=== PATIENT | male | born 1965 | race Caucasian/White ===

== ENCOUNTER 2018-02-22 18:07 | Emergency (ER) | payer BC, OTHER ==
[2018-02-22] MEDS ORDERED: Acetaminophen 500 MG TAB ONE (18:17)
--- NOTE | 2018-02-22 20:17 | RAD ---
PORTABLE AP CHEST X-RAY: 02/22/2018 HISTORY: Cough. Fever. FINDINGS: There is mild blunting of the right lateral costophrenic angle, suggesting a small right pleural effu cristy. There is minimal linear atelectasis versus scarring in the right mid lung zone. Remote left-s ided rib fractures are present. The cardiac silhouette and pulmonary vasculature are within normal l imits. IMPRESSION: Small right pleural effusion. POS: BENOIT
== END 2018-02-22 20:00 | disposition home or self-care (01) ==
LOC: ERS 18:07
DX: J40 Bronchitis, not specified as acute or chronic (principal)
CPT/HCPCS: 71045

== ENCOUNTER 2018-02-23 18:31 | Inpatient (IN) | payer OTHER ==
[~2018-02-23 18:31] MED LIST: ISOVUE-370 76%-LOCM 1 ML ONE
[2018-02-23] MEDS ORDERED: Ketorolac Tromethamine 30 MG/ML VIAL ONE (18:43)
[2018-02-23 19:01] LABS: #Eosinphils 0.2 thou/uL (0.0-0.7); #Monocytes 0.5 thou/uL (0.11-0.59); %Basophils 0.4 % (0.0-1.0); %Eosinophils 1.5 % (0.0-10.0); %Lymphocytes 17.1 % (21.0-51.0); %Monocytes 4.1 % (0.0-10.0); %Neutrophils 76.9 % (42.0-75.0); Hemoglobin 13.1 g/dL (14.0-18.0); Mean Corpuscular HGB CONC 32.9 g/dL (32.0-36.0); Mean Corpuscular Hemoglobin 30.2 pg (27.0-31.0); Mean Corpuscular Volume 91.7 fL (78.0-98.0); Platelet Count 575 thou/uL (130-400); RBC Distribution Width 11.5 % (11.5-14.5); Red Blood Cell (RBC) Count 4.34 mill/uL (4.70-6.10); White Blood Cell (WBC) Count 11.7 thou/uL (4.8-10.8)
[2018-02-23 19:26] LABS: ALT (SGPT) 75 U/L (8-55); AST (SGOT) 49 U/L (5-34); Albumin 3.5 g/dL (3.5-5.0); Alkaline Phosphatase 188 U/L (40-150); Anion Gap 14 mmol/L (10-20); BUN (Urea Nitrogen) 13 mg/dL (8.9-20.6); Bilirubin, Total 0.7 mg/dL (0.2-1.2); Calc. Creatinine Clearance 0 mL/min (70-130); Calcium 9.2 mg/dL (7.8-10.44); Carbon Dioxide 19 mmol/L (22-29); Chloride 107 mmol/L (98-107); Estimated GFR-MDRD Greater than 90; Globulin 3.7 g/dL (2.4-3.5); Glucose 156 mg/dL (70-105); Potassium 3.7 mmol/L (3.5-5.1); Protein, Total 7.2 g/dL (6.0-8.3); Sodium 136 mmol/L (136-145)
[2018-02-23] MEDS ORDERED: cefTRIAXone\\ROCEPHIN 1 GM VIAL ONE (20:10)
[2018-02-23] MEDS ORDERED: cefTRIAXone\\ROCEPHIN 2 GM VIAL ONE (20:11)
[2018-02-23] MEDS ORDERED: Azithromycin 500 MG VIAL ONE (20:57)
[2018-02-23] MEDS ORDERED: Ondansetron PF 4 MG/2 ML Vial ONE (21:00)
[2018-02-23] MEDS ORDERED: Morphine 4 MG/ML VIAL ONE (21:01)
--- NOTE | 2018-02-23 21:09 | CT ---
CT ANGIOGRAM THORAX WITH IV CONTRAST AND 3D RECONSTRUCTIONS: 02/23/18 HISTORY: Chest pain. Patient complains of right sided chest pain with pain radiating to back. COMPARISON: None available. FINDINGS: No filling defects are seen in the pulmonary arteries to suggest pulmonary embolus. The thoracic aort a is normal in caliber without evidence of an aortic dissection. Mild atherosclerotic plaque and calc ifications are seen in the descending thoracic aorta. There is moderately large right pleural effusion and associated atelectasis. However, there is a hete rogeneous mass-like density seen in the right lower lobe measuring 3.3 cm x 2.6 cm. This could repres ent a mass, but necrotizing pneumonia could not be entirely excluded. The left lung is clear. A few peripheral blebs are seen at the right lung apex. There is a mildly prominent pretracheal lymph node measuring 9 mm in short axis dimension with a few mildly prominent lymph nodes in the subcarinal region as well as in the right hilar region. There is a right adrenal mass measuring 2.7 cm x 1.5 cm. There is an area of increased density which could be related to either minimal calcification or mild enhancement. However, further evaluation wit h CT abdomen with noncontrast imaging is recommended. Remainder of the visualized upper abdomen has a normal CT appearance. Osseous structures are intact. There is a small hemangioma seen in the T11 vertebral body. IMPRESSION: 1. Moderately large right pleural effusion with a heterogeneous mass-like structure seen within the right lower lobe measuring 3.3 cm in maximal dimensions. This may represent focal area of necroti zing pneumonia, but a neoplastic process/mass is a possibility. 2. Nonspecific mediastinal lymphadenopathy which could be reactive in origin or secondary to met astatic disease. 3. Right adrenal nodule. Further evaluation with nonenhanced CT scan abdomen following the adren al mass protocol is recommended. 4. No CT evidence of a pulmonary embolus. POS: HEATHER
[2018-02-23 23:53] LABS: Lactic Acid 1.8 mmol/L (0.5-2.2)
[2018-02-24] MEDS ORDERED: Zolpidem Tartrate 5 MG TAB PO PRN (00:04)
[2018-02-24] MEDS ORDERED: Albuterol Sulfate 2.5 mg/3 ml Neb NEB PRN (00:04)
[2018-02-24] MEDS ORDERED: Calcium Carbonate 500 MG ChewTAB PO PRN (00:04)
[2018-02-24] MEDS ORDERED: Ondansetron PF 4 MG/2 ML Vial IVP PRN (00:04)
[2018-02-24] MEDS ORDERED: Acetaminophen 325 MG TAB PO PRN (00:04)
[2018-02-24] MEDS ORDERED: Senokot S 8.6-50 MG TAB PO PRN (00:04)
[2018-02-24] MEDS ORDERED: Bisacodyl 10 MG SUPP PR PRN (00:04)
[2018-02-24] MEDS ORDERED: Ondansetron ODT 4 MG TAB PO PRN (00:04)
[2018-02-24] MEDS ORDERED: Loperamide HCl 2 MG CAP PO PRN (00:04)
[2018-02-24 00:22] VITALS: BMI 24.5
[2018-02-24] MEDS: Ketorolac Tromethamine 30 MG/ML VIAL IVP PRN (01:24)
[2018-02-24] MEDS: Sodium Chloride 0.9% 1,000 ML IV SCH ×2 (01:31→11:00)
--- NOTE | 2018-02-24 02:38 | HP ---
DATE OF SERVICE: 02/23/2018 PRIMARY CARE PHYSICIAN: Nakul. REASON FOR ADMISSION: Necrotizing pneumonia/parapneumonic effusion/lung mass. HISTORY OF PRESENT ILLNESS: A 52-year-old male who has underlying history of tobacco abuse disorder. He smokes about 1 pack per day for 40 years. He was evaluated yesterday in the emergency room with a complaint of cough. The patient reports that he is sick for the last 2 week, but for the last 4 days, he was having on and off fever. He reported that maximum temperature at home was 102. He was having headache, body ache, pleuritic chest pain on the right side. He was having cough. He was having increasing shortness of breath. Yesterday, the patient was given Tylenol in the emergency room and he was discharged home on azithromycin. During that emergency room visit, the patient was febrile with a temperature of 102.2. The patient returned back to the emergency room today again because his pain has not improved and he is feeling more sick. In the emergency room today, his fever is 99.8. He is tachycardic. CT angiography was done, which showed moderately large right pleural effusion with heterogenous mass-like structure within the right lower lobe. There was nonspecific mediastinal lymphadenopathy. The patient denies any hemoptysis. He has mainly pleuritic chest discomfort on the right side. He is feeling weak. He does not have any recall of having upper respiratory or flu-like illness. He denies any UTI symptoms. He denies any constipation, diarrhea, melena, or hematochezia. He stopped smoking for the last 4 days. He denies any weight loss. He denies any similar problem in the past. PAST MEDICAL HISTORY: Tobacco abuse disorder. PAST SURGICAL HISTORY: Appendicectomy. PAST PSYCHIATRIC HISTORY: Reviewed and negative. SOCIAL HISTORY: The patient drinks alcohol socially. He has history of smoking about 1 pack per day for the last 40 years. He only stopped smoking 4 days since he got sick. FAMILY HISTORY: No strong family history of premature coronary artery disease, stroke, or cancer. ALLERGIES: No known drug allergy. CURRENT HOME MEDICATIONS: The patient was yesterday prescribed azithromycin. REVIEW OF SYSTEMS: The following complete review of systems was negative, unless otherwise mentioned in the HPI or below: Constitutional: Weight loss or gain, ability to conduct usual activities. Skin: Rash, itching. Eyes: Double vision, pain. ENT/Mouth: Nose bleeding, neck stiffness, pain, tenderness. Cardiovascular: Palpitations, dyspnea on exertion, orthopnea. Respiratory: Shortness of breath, wheezing, cough, hemoptysis, fever or night sweats. Gastrointestinal: Poor appetite, abdominal pain, heartburn, nausea, vomiting, constipation, or diarrhea. Genitourinary: Urgency, frequency, dysuria, nocturia. Musculoskeletal: Pain, swelling. Neurologic/Psychiatric: Anxiety, depression. Allergy/Immunologic: Skin rash, bleeding tendency. Please see my HPI for pertinent positive and negative. All other review of systems reviewed and negative except as mentioned in the HPI. PHYSICAL EXAMINATION: VITAL SIGNS: Blood pressure currently 131/98, pulse 112, respiratory rate 22, temperature 99.8, saturation 95% on room air, weight 71.2 kilograms. GENERAL: The patient is currently in discomfort due to pleuritic chest discomfort, tachycardic. HEAD: Normocephalic, atraumatic. EYES: Pupils round, reactive to light. Extraocular muscle intact. ENT: Oropharynx within normal limit. Moist mucous membrane. No oral lesion. No pharyngeal erythema. No exudate. NECK: Supple. No JVD, no thyromegaly, no carotid bruit, no lymph nodes. LUNGS: Air entry reduced on the right side. Basal rales noted on the right side. Bronchial breath sound noted on the right side. No wheezing, no rhonchi. CARDIAC: S1, S2 regular. Tachycardia. No murmur, no gallop, no rub. ABDOMEN: Soft. Bowel sounds present. Nontender, nondistended. No organomegaly, no mass, no suprapubic tenderness. BACK: Unremarkable. No CVA tenderness. EXTREMITIES: Upper extremities: Passive movement of all joints are normal. Lower extremities: No edema. Good distal pulsation. SKIN: No skin rash. HEMATOLOGIC: No lymphadenopathy. PSYCHIATRIC: Normal affect. SIGNIFICANT LABORATORY DATA: CBC today WBC 11.7, hemoglobin 13.1, platelet 575 with a left shift. BMP: Sodium 136, potassium 3.7, chloride 107, carbon dioxide 19, BUN 13, creatinine 0.88, glucose 156, calcium 9.2. LFT: AST 49, ALT 75, alkaline phosphatase 188, albumin 3.5. Lactic acid is 1.8. CT angiography showed moderately large right pleural effusion with heterogenous mass in the right lower lobe, 3.3 cm in dimension; nonspecific mediastinal lymphadenopathy; right adrenal nodule; no evidence of pulmonary embolism. Chest x-ray done yesterday, which showed small right pleural effusion, remote left-sided rib fracture. ASSESSMENT AND PLAN: 1. Right-sided pneumonia. The patient does have radiological finding of necrotizing pneumonia. Another differential is parapneumonic effusion. The patient's clinical history is consistent with community-acquired pneumonia, but has not improved. This patient has almost 2-week history of lower respiratory symptoms. At this point, most likely the patient has pneumonia, but other possibility needs to be excluded given his smoking history. The patient will be admitted to medical floor. He will be treated with Solu-Medrol 40 mg IV q.6 hourly, broad-spectrum antibiotic therapy with cefepime 2 gram q.12 hourly, Levaquin 750 mg IV daily, and vancomycin. Pulmonary group will be consulted. This patient will benefit from thoracentesis to rule out parapneumonic effusion versus malignancy. This patient does have mediastinal lymph node, probably reactive from infection. 2. Abnormal liver function test, most likely related with underlying infection with sepsis. We will also check hepatitis profile and we will do a right upper quadrant ultrasound to rule out any other pathology. 3. Tobacco abuse disorder. Smoking cessation counseling given. Healthy lifestyle measures discussed with the patient. 4. Deep venous thrombosis prophylaxis. Lovenox 40 mg subcu daily. 5. Gastrointestinal prophylaxis, Pepcid 20 mg p.o. b.i.d. 6. Pleurisy. The patient will be given Toradol and Solu-Medrol for pleurisy. Disposition plan, based on clinical course. We are expecting patient's stay in hospital more than 2 midnights. Plan of care discussed with the patient in detail. CHAPOD
[2018-02-24] MEDS ORDERED: Vancomycin HCl 1.5 GM in Sodium Chloride 0.9% 250 ML 300 ML IVPB SCH (04:00)
[2018-02-24 05:52] LABS: Band 4 % (5-11); Eosinophils 1 % (0-10); Hemoglobin 12.5 g/dL (14.0-18.0); Hypochromia SLIGHT = 6-15 cells (100X) (0-5/hpf); Lymphocytes 6 % (21-51); MDiff Complete? YES; Mean Corpuscular HGB CONC 32.4 g/dL (32.0-36.0); Mean Corpuscular Hemoglobin 30.3 pg (27.0-31.0); Mean Corpuscular Volume 93.6 fL (78.0-98.0); Mean Platelet Volume 7.2 fL (7.4-10.4); Monocytes 3 % (0-10); Neutrophil 86 % (42-75); PLT Morphology Comment Appears Increased; Platelet Count 554 thou/uL (130-400); RBC Distribution Width 11.6 % (11.5-14.5); Red Blood Cell (RBC) Count 4.13 mill/uL (4.70-6.10)
[2018-02-24 05:55] LABS: ALT (SGPT) 121 U/L (8-55); AST (SGOT) 78 U/L (5-34); Albumin 3.3 g/dL (3.5-5.0); Alkaline Phosphatase 194 U/L (40-150); Anion Gap 13 mmol/L (10-20); BUN (Urea Nitrogen) 13 mg/dL (8.9-20.6); Bilirubin, Total 1.2 mg/dL (0.2-1.2); Calc. Creatinine Clearance 111 mL/min (70-130); Calcium 8.9 mg/dL (7.8-10.44); Carbon Dioxide 21 mmol/L (22-29); Chloride 106 mmol/L (98-107); Estimated GFR-MDRD Greater than 90; Globulin 3.7 g/dL (2.4-3.5); Glucose 129 mg/dL (70-105); Potassium 4.3 mmol/L (3.5-5.1); Sodium 136 mmol/L (136-145)
[2018-02-24 06:16] LABS: HBCM Index 0.07 S/CO (0-0.79); Hep A IgM AB Non-Reactive (NonReactive); Hep A IgM S/CO 0.07 S/CO (0-0.79); Hep B Surf Ag Non-Reactive S/CO (NonReactive); Hepatitis B Core IgM Abs Non-Reactive (NonReactive)
[2018-02-24 07:48] LABS: Hep C IgG Ab Reflex HepC Qnt (NonReactive)
[2018-02-24 07:49] LABS: Hep C Index 1.68 S/CO (0-0.79)
--- NOTE | 2018-02-24 08:20 | ULT ---
RIGHT UPPER QUADRANT ULTRASOUND: INDICATION: History of abnormal LFTs, pneumonia, right pleural effusion, and sepsis. FINDINGS: No focal hepatic lesion is evident. The gallbladder demonstrates multiple small polyps, the largest measuring 4 mm. No sonographic David y's sign is reported. The common bile duct measures 3.7 mm. Visualized pancreas unremarkable. The right kidney measures 14.3 x 5.9 x 4.3 cm. There is slight prominence of the right renal pelvis with out karl evidence of caliectasis suspicious for an extrarenal pelvis. There is a complex right-side d pleural effusion better detailed on the CTA of the thorax dated 02/23/2018. IMPRESSION: 1. No focal hepatic lesion identified. 2. Multiple small polyps within the gallbladder, the largest measuring up to 4 mm. Followup examina tion in 6 months is recommended to document stability. There is no sonographic evidence of acute cho lecystitis. 3. Right extrarenal pelvis of the kidney. 4. Complex right side pleural effusion. POS: BH
[2018-02-24] MEDS ORDERED: Enoxaparin Sodium 40 MG/0.4 ML SYRINGE SC SCH (09:00)
[2018-02-24] MEDS ORDERED: Cefepime 2 GM in Sodium Chloride 0.9% 100 ML IVPB SCH (09:00)
[2018-02-24] MEDS ORDERED: Lidocaine 1% (PF) 30 ML VIAL ONE (09:03)
[2018-02-24] MEDS: Famotidine 20 MG TAB PO SCH ×2 (10:17→20:20)
[2018-02-24] MEDS: Clindamycin 150 MG CAP PO SCH ×3 (10:17→20:20)
[2018-02-24] MEDS: Saccharomyces boulardii 250 MG CAP PO SCH (10:17)
[2018-02-24] MEDS: guaiFENesin ER 600 MG TAB PO SCH ×2 (10:17→20:20)
[2018-02-24] MEDS: HYDROcodone/Acetaminophen 5/325 mg Tablet PO PRN (14:56)
--- NOTE | 2018-02-24 15:19 | CON ---
DATE OF CONSULTATION: 02/24/2018 SERVICE: Pulmonary Medicine. REASON FOR CONSULTATION: Pleural effusion. HISTORY OF PRESENT ILLNESS: The patient is a 52-year-old white male with past medical history significant for a 2-week history of not feeling very good followed by a 4-day history of high fevers. Ultimately, he presented to the emergency department. He was diagnosed with pneumonia and given azithromycin. He was subsequently discharged home. That being said over the next 24 hours, he felt much worse. He presented back to the emergency department and was subsequently admitted. They did a CT scan, there was a loculated effusion identified. He denies any current fevers, chills, nausea, vomiting, or shortness of breath. He is feeling a little bit better overnight since antibiotics were initiated. Otherwise, there has been no interval change to his condition. He has been coughing up yellow and green phlegm. He had no recent night sweats. This does not go back more than 2 weeks however. He has not had any dysuria; hot, red, swollen joints; rashes; or diarrhea. He does endorse malaise. PAST MEDICAL HISTORY: 1. Alcohol abuse. 2. Hepatitis C, new diagnosis. PAST SURGICAL HISTORY: Appendectomy. SOCIAL HISTORY: He is a social drinker. He has a [id number] history of smoking, but quit roughly 4 days ago when he got severely ill. He denies any illicit drugs. He denies any exposure to chemicals, dust, asbestos, or tuberculosis. FAMILY HISTORY: Noncontributory. ALLERGIES: No known drug allergies. MEDICATIONS: List of inpatient medications were reviewed. We have added anaerobic coverage to his antibiotics. REVIEW OF SYSTEMS: General, head, ears, eyes, nose, throat, cardiovascular, respiratory, GI, , musculoskeletal, neurologic, and skin is negative except as mentioned in the HPI. PHYSICAL EXAMINATION: VITAL SIGNS: Afebrile, pulse 80, blood pressure 116/78, respirations 17, saturation 93% on room air. GENERAL: The patient is awake, alert, no apparent distress. LUNGS: Decent air entry. There is no prolonged expiratory phase or wheezing present. There is decreased air entry at the right base. No rhonchi are appreciated. HEART: Normal rate, regular. ABDOMEN: Soft, nontender, nondistended. Bowel sounds are positive. MUSCULOSKELETAL: No cyanosis or clubbing. There is no pitting in the bilateral lower extremities. NEUROLOGIC: Grossly nonfocal. LABORATORY DATA: WBC 20.0 and uptrending, hemoglobin 12.5, platelets 554,000. Band count is dropping to 4% with a high neutrophil count of 86%. Basic metabolic profile is unremarkable. AST, ALT, alkaline phosphatase are all climbing. His lactate is negative x2. Hepatitis C antibodies are abnormal. Hepatitis B antigen, IgM are negative. IMAGING: Ultrasound of the abdomen demonstrates no acute liver abnormalities. Multiple small polyps are present in the gallbladder. Complex right-sided pleural effusion is identified. CTA of the chest demonstrates an infiltrate in the right base. There is a pleural effusion. Most of that looks free flowing. That being said, the apical regions, it does take on a loculated appearance. Nonspecific mediastinal lymph nodes are abnormal. There is an infiltrate versus abscess in the right base. Tumor growth cannot be excluded entirely. ASSESSMENT AND PLAN: 1. Community-acquired pneumonia. 2. Pleural effusion. 3. Chronic hepatitis C, new diagnosis. The patient does not require healthcare-associated coverage. We are going to discontinue his vancomycin and cefepime. I am going to add anaerobic coverage with clindamycin. Levaquin should be more than adequate to cover for the community-acquired organisms. We will proceed with a thoracentesis. Steroids will be discontinued in totality. If it appears that this is an infected space , surgical consultation will be placed. 70 minutes have been devoted to this patient in various activities. I personally reviewed all imaging studies and laboratory data noted within this document. For fifty percent of this time, I was interacting with the patient at the bedside or coordinating care with the care team. For the remainder of the time I was immediately available to the patient in the hospital unit. DAVID
[2018-02-24 15:51] LABS: Fluid, pH - Pleural Fld 7.04
[2018-02-24] MEDS ORDERED: Vancomycin HCl 1 GM in Premix Bag 1 BAG IVPB SCH (16:00)
[2018-02-24 16:06] LABS: Pleural Fluid, Protein 4.6 g/dL
--- NOTE | 2018-02-24 16:20 | PDOC.PN ---
- Subjective Encounter Start Date: 02/24/18 Encounter Start Time: 16:15 Subjective: f/u for R community acquired pneumonia with parapneumonic effusion -: s/p thoracentesis on current Clindamycin and Levaquin. - Objective Resuscitation Status: Resuscitation Status FULL:Full Resuscitation MAR Reviewed: Yes Vital Signs & Weight: Vital Signs (12 hours) Temp Pulse Resp BP Pulse Ox 02/24/18 08:00 98.2 F 80 17 116/78 93 L Weight Weight 156 lb 8.451 oz Result Diagrams: 02/24/18 04:15 02/24/18 04:15 Additional Labs: Microbiology 02/24/18 06:35 Sputum Respiratory Culture - Preliminary 02/23/18 20:32 Venous blood - Left Hand Blood Culture - Preliminary Specimen has been received and culture in progress. No Growth to date. 02/23/18 18:40 Venous blood - Right Arm Blood Culture - Preliminary Specimen has been received and culture in progress. No Growth to date. Laboratory Tests 02/23/18 02/23/18 02/24/18 18:40 18:40 04:15 WBC 11.7 H Hgb 13.1 L Neutrophils % 76.9 H Neutrophils % (Manual) AST 49 H 78 H ALT 75 H 121 H Alkaline Phosphatase 188 H 194 H Hepatitis A IgM Ab Hep Bs Antigen Hep B Core IgM Ab Hepatitis C Antibody 02/24/18 02/24/18 04:15 04:15 WBC Hgb Neutrophils % Neutrophils % (Manual) 86 H AST ALT Alkaline Phosphatase Hepatitis A IgM Ab Non-Reactive Hep Bs Antigen Non-Reactive Hep B Core IgM Ab Non-Reactive Hepatitis C Antibody Reflex HepC Qnt H Radiology Reviewed by me: Yes (CTA chest - R pleural effusion, central mass 3cm , ?necrotic pna) Phys Exam - Physical Examination Constitutional: NAD HEENT: PERRLA, sclera anicteric, oral pharynx no lesions Neck: no nodes, no JVD, supple, full ROM diminished in R lung base Respiratory: no rales, no rhonchi S1, S2 Cardiovascular: RRR, no significant murmur, no rub, gallop Gastrointestinal: soft, non-tender, no distention, positive bowel sounds Musculoskeletal: no edema, pulses present Neurological: normal sensation, moves all 4 limbs Psychiatric: normal affect, A&O x 3 Skin: no rash, normal turgor, cap refill <2 seconds Dx/Plan (1) Bacterial pneumonia Code(s): J15.9 - UNSPECIFIED BACTERIAL PNEUMONIA Status: Acute Comment: suspected gram + cocci, continue Levaquin and Clindamycin, pulmonary supportive mgmt (2) Parapneumonic effusion Code(s): J18.9 - PNEUMONIA, UNSPECIFIED ORGANISM; J91.8 - PLEURAL EFFUSION IN OTHER CONDITIONS CLASSIFIED ELSEWHERE Status: Acute Comment: s/p thoracentesis 02/24/18, await final pleural fluid cx, continue current abx regimen (3) Hepatitis C Code(s): B19.20 - UNSPECIFIED VIRAL HEPATITIS C WITHOUT HEPATIC COMA Status: Acute Qualifiers: Viral hepatitis chronicity: unspecified Comment: Recommend outpt mgmt and follow up (4) Transaminitis Code(s): R74.0 - NONSPEC ELEV OF LEVELS OF TRANSAMNS & LACTIC ACID DEHYDRGNSE Status: Chronic Comment: Likely due to Hep C +, outpt follow for mgmt - Plan continue antibiotics, respiratory therapy, out of bed/ambulate, DVT proph w/SCDs Stable overall -: Continue Levaquin and Clindamycin -: Continue Prednisone -: OOB/ambulate -: AM lab: CBC, Legionella and Strep Urine antigen pending * .
[2018-02-24 16:22] LABS: Legionella Urinary Ag Negative (Negative); Strep pneumo Urine Ag NEGATIVE (NEGATIVE)
[2018-02-24 17:08] LABS: BF Color Yellow; Body Fluid Source THORACENTESIS FLD; Clarity Cloudy/Turbid (Clear)
[2018-02-24 17:09] LABS: RBC Background Count 0.001; RBC Count-Automated 136000 /cumm; Tube # EDTA; WBC/NonHematic-Auto 92900 /cumm
--- NOTE | 2018-02-24 17:33 | OP ---
DATE OF SERVICE: 02/24/2018 SERVICE: Pulmonary Medicine. PROCEDURE: Right-sided pleural drainage with catheter insertion under ultrasound guidance. CONSENT: The risks and benefits of the procedure were explained to the patient. All questions were answered and alternative options explained. STAFF PHYSICIAN: Zia Ibrahim M.D. MEDICATIONS USED: Lidocaine 1% without epinephrine, total quantity 10 mL. PREOPERATIVE DIAGNOSES: 1. Community-acquired pneumonia. 2. Pleural effusion. POSTPROCEDURE DIAGNOSES: 1. Community-acquired pneumonia. 2. Pleural effusion. DESCRIPTION OF PROCEDURE: A timeout was performed by the procedure team and patient. The patient wa s positively identified using name and date of . The procedure site was marked. Vital sign mon itoring was accomplished by noninvasive hemodynamic monitoring, pulse oximetry. In the seated positi on, the right posterior hemithorax was examined using an ultrasound probe. The diaphragm and pleural fluid was easily identified. The skin was prepped and draped in sterile fashion and anesthetized wi th 1% lidocaine without epinephrine. A finder needle was inserted in the pleural space with return o f cloudy yellow fluid. A pleural drainage catheter was then inserted in the same location. A total quantity of 400 mL of the same fluid was withdrawn by syringe pump technique. A sample was sent for analysis. Evacuation of fluid was terminated because the fluid stopped coming. At the end of the pr ocedure, estimated pleural pressure, measured by manometry, was -20 cm of pleural fluid. Intact cath eter was withdrawn and exhalation. A sterile dressing was applied. The patient has stable vital thr oughout the entire procedure. ESTIMATED BLOOD LOSS: None. COMPLICATIONS: None.
[2018-02-24 19:24] LABS: BF Segmented Neutrophils 90 %; Cell Count Non Hematic 4 %; Lymphocytes 6 %
[2018-02-25] MEDS: Clindamycin 150 MG CAP PO SCH ×4 (03:08→21:20)
[2018-02-25 05:54] LABS: Band 22 % (5-11); Hemoglobin 11.3 g/dL (14.0-18.0); Lymphocytes 11 % (21-51); MDiff Complete? YES; Mean Corpuscular HGB CONC 32.6 g/dL (32.0-36.0); Mean Corpuscular Hemoglobin 30.5 pg (27.0-31.0); Mean Corpuscular Volume 93.6 fL (78.0-98.0); Mean Platelet Volume 7.3 fL (7.4-10.4); Monocytes 3 % (0-10); Neutrophil 64 % (42-75); Platelet Count 543 thou/uL (130-400); RBC Distribution Width 11.5 % (11.5-14.5); RBC Morphology Normal; Red Blood Cell (RBC) Count 3.69 mill/uL (4.70-6.10); White Blood Cell (WBC) Count 27.9 thou/uL (4.8-10.8)
[2018-02-25] MEDS: predniSONE 20 MG TAB PO SCH (08:35)
[2018-02-25] MEDS: Saccharomyces boulardii 250 MG CAP PO SCH (08:35)
[2018-02-25] MEDS: Famotidine 20 MG TAB PO SCH ×2 (08:35→21:20)
[2018-02-25] MEDS: guaiFENesin ER 600 MG TAB PO SCH ×2 (08:35→21:21)
[2018-02-25] MEDS: HYDROcodone/Acetaminophen 5/325 mg Tablet PO PRN ×2 (08:35→21:22)
--- NOTE | 2018-02-25 09:34 | PDOC.PN ---
- Subjective Encounter Start Date: 02/25/18 Encounter Start Time: 09:25 Subjective: f/u for R-sided PNA with effusion on current Clindamycin/Levaquin. -: s/p thoracentesis without dominant organism identified. -: Mild R back discomfort with movement. - Objective Resuscitation Status: Resuscitation Status FULL:Full Resuscitation MAR Reviewed: Yes Vital Signs & Weight: Vital Signs (12 hours) Temp Pulse Resp BP Pulse Ox 02/25/18 07:09 98.2 F 91 20 135/89 93 L 02/25/18 04:00 98.6 F 86 16 108/78 94 L Weight Weight 156 lb 8.451 oz I&O: 02/24/18 02/25/18 02/26/18 06:59 06:59 06:59 Intake Total 1800 Balance 1800 Result Diagrams: 02/25/18 04:49 02/24/18 04:15 Additional Labs: Microbiology 02/24/18 06:35 Nasopharyngeal swab Respiratory Virus Panel (PCR) - Final 02/24/18 15:11 Pleural fluid Body Fluid Culture - Preliminary 02/24/18 06:35 Sputum Respiratory Culture - Preliminary 02/23/18 20:32 Venous blood - Left Hand Blood Culture - Preliminary Specimen has been received and culture in progress. No Growth to date. 02/23/18 18:40 Venous blood - Right Arm Blood Culture - Preliminary Specimen has been received and culture in progress. No Growth to date. Laboratory Tests 02/23/18 02/23/18 02/24/18 18:40 18:40 04:15 WBC 11.7 H Hgb 13.1 L Plt Count Neutrophils % 76.9 H Neutrophils % (Manual) Band Neuts % (Manual) AST 49 H 78 H ALT 75 H 121 H Alkaline Phosphatase 188 H 194 H Hepatitis A IgM Ab Hep Bs Antigen Hep B Core IgM Ab Hepatitis C Antibody Ur L.pneumophila Ag Ur Strep pneumoniae Ag 02/24/18 02/24/18 02/24/18 04:15 04:15 15:08 WBC 20.0 H Hgb Plt Count 554 H Neutrophils % Neutrophils % (Manual) 86 H Band Neuts % (Manual) 4 L AST ALT Alkaline Phosphatase Hepatitis A IgM Ab Non-Reactive Hep Bs Antigen Non-Reactive Hep B Core IgM Ab Non-Reactive Hepatitis C Antibody Reflex HepC Qnt H Ur L.pneumophila Ag Negative Ur Strep pneumoniae Ag 02/24/18 02/25/18 15:08 04:49 WBC Hgb Plt Count Neutrophils % Neutrophils % (Manual) 64 Band Neuts % (Manual) 22 H AST ALT Alkaline Phosphatase Hepatitis A IgM Ab Hep Bs Antigen Hep B Core IgM Ab Hepatitis C Antibody Ur L.pneumophila Ag Ur Strep pneumoniae Ag NEGATIVE Phys Exam - Physical Examination Constitutional: NAD HEENT: PERRLA, sclera anicteric, oral pharynx no lesions Neck: no nodes, no JVD, supple, full ROM diminished in R lung field Respiratory: no wheezing S1, S2 Cardiovascular: RRR, no significant murmur, no rub, gallop Gastrointestinal: soft, non-tender, no distention, positive bowel sounds Musculoskeletal: no edema, pulses present Neurological: normal sensation, moves all 4 limbs Psychiatric: normal affect, A&O x 3 Skin: no rash, normal turgor, cap refill <2 seconds Dx/Plan (1) Bacterial pneumonia Code(s): J15.9 - UNSPECIFIED BACTERIAL PNEUMONIA Status: Acute Comment: suspected gram + cocci, continue Levaquin and Clindamycin, likely empyema forming, surgical consult for likely decortication (2) Parapneumonic effusion Code(s): J18.9 - PNEUMONIA, UNSPECIFIED ORGANISM; J91.8 - PLEURAL EFFUSION IN OTHER CONDITIONS CLASSIFIED ELSEWHERE Status: Acute Comment: s/p thoracentesis 02/24/18, await final pleural fluid cx, continue current abx regimen, see above (3) Hepatitis C Code(s): B19.20 - UNSPECIFIED VIRAL HEPATITIS C WITHOUT HEPATIC COMA Status: Acute Qualifiers: Viral hepatitis chronicity: unspecified Comment: Recommend outpt mgmt and follow up (4) Transaminitis Code(s): R74.0 - NONSPEC ELEV OF LEVELS OF TRANSAMNS & LACTIC ACID DEHYDRGNSE Status: Chronic Comment: Likely due to Hep C +, outpt follow for mgmt - Plan continue antibiotics, social media project manager, respiratory therapy, out of bed/ambulate , DVT proph w/SCDs Stable overall -: Continue Levaquin/Clindamycin -: Surgical consult for decortication -: Continue Prednisone -: Florastor daily * AM lab: CBC
--- NOTE | 2018-02-25 14:41 | PQF ---
DATE: 02-25-18 ATTN: DR. JAMES GASPAR Please exercise your independent, professional judgment in responding to the clarification form. Clinical indicators are provided on the bottom of this form for your review Please check appropriate box(s) to clarify if the following diagnosis has been ruled in or ruled out: SEPSIS [ ] Ruled in diagnosis [ ] Continue to treat [ ] Resolved [ x ] Ruled out diagnosis [ ] Other diagnosis [ ] Unable to determine In addition, please specify: Present on Admission (POA): [ ] Yes [ x ] No [ ] Unable to determine For continuity of documentation, please document condition throughout progress notes and discharge summary. Thank You. CLINICAL INDICATORS - SIGNS / SYMPTOMS / LABS ER DX: PNEUMONIA, R PLEURAL EFFUSION, SEPSIS H&P: R SIDED PNEUMONIA, ABN LFT, MOST LIKELY RELATED WITH UNDERLYING INFECTION WITH SEPSIS. WBC: 02-23-18: 11.7 02-24-18: 20 02-25-18: 27.9 BANDS: 02-24-18: 4 02-25-18: 22 ER: TEMP: 99.8, PULSE: 112, 107, REPORTS HE HAS FEVER OF 102, MEASURED AT HOME, RR: 21, 22 RISK FACTORS: H&P: HX TOBACCO ABUSE, FEVER, COUGH, MOELLER, BODY ACHES, PLEURISY, NEW DX OF HEP C H&P: R SIDED PNA, PLEURAL EFFUSION R SIDED TREATMENTS: ER: AZITHROMAX IV, CEFTRIAXONE IV, IVF NS (This form is maintained as a part of the permanent medical record) 2014 [employer]. All Rights Reserved [email or web address] Office: [phone] [facility] CENTERBushra
--- NOTE | 2018-02-25 17:15 | PRG ---
DATE OF SERVICE: 02/25/2018 SERVICE: Pulmonary Medicine. INTERVAL HISTORY: The patient is doing fine from a respiratory standpoint. He is breathing comfortably. Otherwise, there has been no interval change to his condition. He continues to have right-sided chest discomfort. PHYSICAL EXAMINATION: VITAL SIGNS: Afebrile, pulse 91, blood pressure 116/68, respirations 17, saturation 94% on room air. GENERAL: The patient is awake, alert, no apparent distress. LUNGS: Decent air entry on the left. Decreased air entry on the right. HEART: Normal rate, regular. ABDOMEN: Soft, nontender, nondistended. Bowel sounds are positive. MUSCULOSKELETAL: No cyanosis or clubbing. There is no pitting in the bilateral lower extremities. NEUROLOGIC: Grossly nonfocal. LABORATORY DATA: WBC 28, hemoglobin 11.3, platelets 543,000. Basic metabolic profile is essentially unremarkable. AST and ALT were previously up trending. Body fluid analysis is consistent with a neutrophilic exudate with low glucose and pH consistent with a complicated parapneumonic pleural effusion at best. Cultures remain negative to date. Respiratory virus panel is negative. ASSESSMENT: 1. Community-acquired pneumonia. 2. Complicated parapneumonic pleural effusion. 3. Chronic hepatitis C, new diagnosis. DISCUSSION AND PLAN: The patient is doing fine from a respiratory standpoint at this point. He actually says, he feels better today. That being said, at best we are dealing with a complicated space. As such, I will be treating this as though were an empyema. Cardiothoracic consultation will be placed. The patient will likely move forward with a decortication of the next 24-48 hours. He will need to visit with GI in the outpatient setting to discuss treatment modalities for his hepatitis. DAVID
--- NOTE | 2018-02-25 22:07 | CON ---
DATE OF CONSULTATION: 02/25/2018 HISTORY OF PRESENT ILLNESSs: This is a 52-year-old gentleman, smoker for most of his life, who felt like he had the flu with some fever, malaise, some mild anorexia, mild cough. He was seen in the emergency room; however, returned and a CT scan showed a right pleural effusion. This was aspirated today by Dr. Ibrahim and appeared to be purulent in nature and was not felt to be fully evacuated. Based on this, we have been asked to perform thoracoscopy. PAST MEDICAL HISTORY: Negative for hypertension or diabetes mellitus. PAST SURGICAL HISTORY: Appendectomy. SOCIAL HISTORY: He works as a mechanic welder. He lives with his grandmother, who is 88 years old. Smokes a pack of cigarettes a day and drinks socially. MEDICATIONS: He was on no current medications other than his azithromycin that was prescribed on the day prior. ALLERGIES: He has no known allergies. REVIEW OF SYSTEMS: Essentially negative apart from his symptoms are noted above. PHYSICAL EXAMINATION: GENERAL: He is an alert, cooperative gentleman. VITAL SIGNS: Resting heart rate of about 100, blood pressure 150. NECK: No carotid bruits, no JVD. LUNGS: Clear to auscultation anteriorly. CARDIAC: No murmurs. ABDOMEN: Soft, nontender, no masses, no aneurysm. EXTREMITIES: No peripheral edema. Palpable pedal pulses bilaterally. PLAN: I have discussed the situation with the patient and have recommended thoracoscopy with irrigation and chest tube placement. Informed consent has been obtained. DAVID
[2018-02-25] MEDS: Ketorolac Tromethamine 30 MG/ML VIAL IVP PRN (22:52)
[2018-02-26] MEDS: Clindamycin 150 MG CAP PO SCH ×4 (02:15→21:36)
[2018-02-26 05:57] LABS: #Basophils 0.1 thou/uL (0.0-0.2); #Eosinphils 0.1 thou/uL (0.0-0.7); #Lymphocytes 3.1 thou/uL (1.20-3.40); #Monocytes 1.2 thou/uL (0.11-0.59); #Neutrophils 13.6 thou/uL (1.40-6.50); %Basophils 0.3 % (0.0-1.0); %Eosinophils 0.5 % (0.0-10.0); %Lymphocytes 17.3 % (21.0-51.0); %Monocytes 6.8 % (0.0-10.0); %Neutrophils 75.1 % (42.0-75.0); Hemoglobin 11.3 g/dL (14.0-18.0); Mean Corpuscular HGB CONC 32.6 g/dL (32.0-36.0); Mean Corpuscular Hemoglobin 30.6 pg (27.0-31.0); Mean Corpuscular Volume 93.6 fL (78.0-98.0); Platelet Count 592 thou/uL (130-400); RBC Distribution Width 11.6 % (11.5-14.5); White Blood Cell (WBC) Count 18.1 thou/uL (4.8-10.8)
[2018-02-26] MEDS ORDERED: Midazolam HCl 2 mg/2 ml Vial ONE (06:45)
[2018-02-26] MEDS ORDERED: Fentanyl 100 MCG/2 ML VIAL ONE ×3 (06:45→09:23)
[2018-02-26] MEDS ORDERED: Bupivacaine HCl 0.5%/Epinephrine 1:200,000/PF 30 ml Vial ONE (08:09)
[2018-02-26] MEDS: predniSONE 20 MG TAB PO SCH (09:00)
[2018-02-26] MEDS: Famotidine 20 MG TAB PO SCH ×2 (09:01→21:36)
[2018-02-26] MEDS: guaiFENesin ER 600 MG TAB PO SCH ×2 (09:01→21:36)
[2018-02-26] MEDS: Saccharomyces boulardii 250 MG CAP PO SCH (09:01)
[2018-02-26] MEDS ORDERED: HYDROcodone/Acetaminophen 10/325 mg Tablet PO PRN ×2 (11:20)
--- NOTE | 2018-02-26 11:27 | OP ---
DATE OF PROCEDURE: 02/26/2018 PREOPERATIVE DIAGNOSIS: Empyema. POSTOPERATIVE DIAGNOSIS: empyema. PROCEDURE: Thoracoscopy with total lung decortication. SURGEON: Sanjeev Clark M.D. ANESTHESIA: General. ESTIMATED BLOOD LOSS: Less than 10 mL. PROCEDURE IN DETAIL: After adequate double lumen endotracheal anesthesia had been obtained, the patient was placed in the left lateral decubitus position. Padding was ensured. Lung was deflated a port was chosen a 5 mm port and scope inserted. The lung was adherent. Multiple areas with fibrinous adhesions. A second port hole was made and a thoracoscopic sponge stick was used to take down the adhesions and remove the fibrinous material. About 400 mL of brown fluid was aspirated. Six liters of irrigation was then used to irrigate the chest cavity, removing all loose debris. A 32 right angle 28 straight chest tube was then placed, Marcaine 0.5% with epinephrine was used to infiltrate the intercostal spaces around the entry sites. The patient is to be taken to the recovery room in guarded condition. DAVID
--- NOTE | 2018-02-26 11:40 | PRG ---
DATE OF SERVICE: 02/26/2018 SERVICE: Pulmonary Medicine. INTERVAL HISTORY: The patient is doing outstanding from a respiratory standpoint. He denies any current chest pain, fevers, chills. He is having some back discomfort after his operation. Otherwise, there has been no interval change to his condition. PHYSICAL EXAMINATION: VITAL SIGNS: Afebrile, pulse 116, blood pressure 137/91, respirations 18, saturation 97% on room air. GENERAL: The patient is awake and alert, in no apparent distress. LUNGS: Excellent air entry. There is no prolonged expiratory phase, wheezing, rhonchi or crackles present. HEART: Normal rate, regular. ABDOMEN: Soft, nontender, nondistended. Bowel sounds are positive. MUSCULOSKELETAL: No cyanosis or clubbing. No pitting in the bilateral lower extremities. NEUROLOGIC: Grossly nonfocal. LABORATORY DATA: WBC 18.1, hemoglobin 11.3, platelets 592,000. Culture results remain negative to date. IMAGING: Chest x-ray demonstrates interval placement of a right chest tube. There has been interval evacuation of the pleural effusion. There is excellent expansion of the lung. ASSESSMENT: 1. Community-acquired pneumonia. 2. Complicated parapneumonic pleural effusion. 3. Hepatitis C, new diagnosis. 4. Alcohol abuse. DISCUSSION AND PLAN: The patient is really doing well from a respiratory standpoint. I will switch his antibiotics over to p.o. Augmentin, which need to be continued for a total duration of 2 weeks from this date. If he develops fevers or recurrent illness, he has been directed to return to clinic sooner. Pulmonary will continue to follow while the patient remains in house for the time being. Once the chest tube is out, he should be stable for transition out of the hospital. I will have him return to see me in the outpatient setting in [address] chest to evaluate the lung infiltrate/abscess/mass. DAVID
--- NOTE | 2018-02-26 11:47 | RAD ---
CHEST ONE VIEW: History: 52-year-old male with history of follow up pneumonia, right pleural effusion, sepsis and abnormal LFT s. Comparison: 02-22-18, CT pulmonary angio of chest 02-23-18 FINDINGS: Two right chest tubes are in place with some minimal subcutaneous emphysema. There has been improveme nt in the previously noted right pleural effusion when compared to the prior CT semiconductor wafers tester film. Heart size remains upper range of normal. No significant pneumothorax. IMPRESSION: Two right chest tubes in place. No significant pneumothorax. Diminished right pleural effusion. Borde rline heart size. No significant new process. POS: [facility]
[2018-02-26] MEDS: Ketorolac Tromethamine 30 MG/ML VIAL IVP SCH ×2 (12:27→17:41)
[2018-02-26] MEDS ORDERED: Ketorolac Tromethamine 30 MG/ML VIAL ONE (13:44)
[2018-02-26] MEDS ORDERED: Ondansetron PF 4 MG/2 ML Vial ONE (13:44)
[2018-02-26] MEDS ORDERED: PROPOFOL 200 MG/20 ML VIAL ONE (13:44)
[2018-02-26] MEDS ORDERED: Glycopyrrolate 0.2 MG/ML 5 ML SYRINGE ONE (13:44)
[2018-02-26] MEDS ORDERED: PHENYLEPHRINE-NS 100 MCG/ML 10 ML SYRINGE ONE (13:44)
[2018-02-26] MEDS: Fentanyl 100 MCG/2 ML VIAL SLOW IVP PRN ×2 (17:34→21:38)
[2018-02-26 18:11] LABS: Hep C PCR-Quant HCV Not Detected IU/mL (.)
--- NOTE | 2018-02-26 18:50 | PDOC.PN ---
- Subjective Encounter Start Date: 02/26/18 Encounter Start Time: 13:30 Patient seen and examined for Sepsis/Pneumonia/Empyema. s/p thoracoscopy with chest tube +. No new complaints. No overnight events - Objective Resuscitation Status: Resuscitation Status FULL:Full Resuscitation MAR Reviewed: Yes Vital Signs & Weight: Vital Signs (12 hours) Temp Pulse Resp BP Pulse Ox 02/26/18 12:00 97.9 F 79 18 112/76 95 02/26/18 11:08 97.9 F 79 16 112/76 95 02/26/18 08:00 97.9 F 79 18 112/76 94 L Weight Weight 156 lb 8.451 oz I&O: 02/25/18 02/26/18 02/27/18 06:59 06:59 06:59 Intake Total 1800 950 Balance 1800 950 Result Diagrams: 02/26/18 05:35 02/24/18 04:15 Phys Exam - Physical Examination Constitutional: NAD Respiratory: no wheezing, no rhonchi chest tube +, Rt basilar rales Cardiovascular: RRR, no rub Gastrointestinal: soft, non-tender, positive bowel sounds Musculoskeletal: no edema Neurological: moves all 4 limbs Dx/Plan - Plan 1. Sepsis due to CAP ?gram positive vs Anaerobes / Empyema s/p thorascoscopy Cont Levaquin with Clindamycin, Cultures neg Pain control 2. Chronic Hep C- PCR negative 3. Tobacco dep - Counselled 4. Abn LFTS - prob due to sepsis. 5. Other issues per previous notes Review of Systems - Review of Systems Constitutional: negative: fever, chills, sweats, weakness, malaise, other Cardiovascular: negative: chest pain, palpitations, orthopnea, paroxysmal nocturnal dyspnea, edema, light headedness, other Gastrointestinal: negative: Nausea, Vomiting, Abdominal Pain, Diarrhea, Constipation, Melena, Hematochezia, Other - Medications/Allergies Allergies/Adverse Reactions: Allergies Allergy/AdvReac Type Severity Reaction Status Date / Time No Known Allergies Allergy Verified 02/24/18 01:10 Medications: Current Medications Acetaminophen (Tylenol) 650 mg PO Q4H PRN PRN Reason: Headache/Fever/Mild Pain (1-3) Hydrocodone Bitart/Acetaminophen ([place] 10/325) 1 tab PO Q4H PRN PRN Reason: Pain 4-6 Last Admin: 02/26/18 17:16 Dose: 1 tab Albuterol Sulfate (Ventolin) 2.5 mg NEB [id number] PRN PRN Reason: Wheezing Bisacodyl (Dulcolax) 10 mg NE DAILYPRN PRN PRN Reason: Constipation Calcium Carbonate (Tums) 1,000 mg PO Q4H PRN PRN Reason: Heartburn or Indigestion Clindamycin HCl (Cleocin) 300 mg PO 0300,0900,1500,2100 [facility] Last Admin: 02/26/18 15:41 Dose: 300 mg Famotidine (Pepcid) 20 mg PO BID [facility] Last Admin: 02/26/18 09:01 Dose: Not Given Fentanyl (Sublimaze) 50 mcg SLOW IVP Q2H PRN PRN Reason: Severe Pain (7-10) Last Admin: 02/26/18 17:34 Dose: 50 mcg Guaifenesin (Mucinex) 600 mg PO Q12HR [facility] Last Admin: 02/26/18 09:01 Dose: Not Given Levofloxacin 750 mg/ Device 150 mls @ 100 mls/hr IVPB Q24HR [facility] Last Admin: 02/26/18 02:15 Dose: 150 mls Ketorolac Tromethamine (Toradol) 15 mg IVP Q6HR [facility] Stop: 03/03/18 12:01 Last Admin: 02/26/18 17:41 Dose: Not Given Loperamide HCl (Imodium) 2 mg PO PRN PRN PRN Reason: Diarrhea/Loose Stools Ondansetron HCl (Zofran Odt) 4 mg PO Q6H PRN PRN Reason: Nausea/Vomiting Ondansetron HCl (Zofran) 4 mg IVP Q6H PRN PRN Reason: Nausea/Vomiting Prednisone (Prednisone) 20 mg PO QAM-[facility] Stop: 03/01/18 08:01 Last Admin: 02/26/18 09:00 Dose: Not Given Saccharomyces Boulardii (Florastor) 250 mg PO DAILY [facility] Last Admin: 02/26/18 09:01 Dose: Not Given Senna/Docusate Sodium (Senokot S) 2 tab PO BIDPRN PRN PRN Reason: Constipation Sodium Chloride (Flush - Normal Saline) 10 ml IVF Q12HR [facility] Last Admin: 02/26/18 09:01 Dose: Not Given Sodium Chloride (Flush - Normal Saline) 10 ml IVF PRN PRN PRN Reason: Saline Flush Zolpidem Tartrate (Ambien) 5 mg PO HSPRN PRN PRN Reason: Insomnia
[2018-02-27] MEDS: Ketorolac Tromethamine 30 MG/ML VIAL IVP SCH ×4 (00:50→18:07)
[2018-02-27] MEDS: Clindamycin 150 MG CAP PO SCH ×4 (02:31→20:01)
[2018-02-27] MEDS: Fentanyl 100 MCG/2 ML VIAL SLOW IVP PRN (02:32)
[2018-02-27 05:45] LABS: Band 10 % (5-11); Eosinophils 1 % (0-10); Hemoglobin 11.7 g/dL (14.0-18.0); Lymphocytes 15 % (21-51); MDiff Complete? YES; Mean Corpuscular HGB CONC 32.7 g/dL (32.0-36.0); Mean Corpuscular Hemoglobin 30.6 pg (27.0-31.0); Mean Corpuscular Volume 93.7 fL (78.0-98.0); Monocytes 10 % (0-10); Neutrophil 64 % (42-75); Platelet Count 580 thou/uL (130-400); Red Blood Cell (RBC) Count 3.82 mill/uL (4.70-6.10)
[2018-02-27] MEDS: Saccharomyces boulardii 250 MG CAP PO SCH (09:07)
[2018-02-27] MEDS: Famotidine 20 MG TAB PO SCH ×2 (09:07→20:01)
[2018-02-27] MEDS: guaiFENesin ER 600 MG TAB PO SCH ×2 (09:07→20:01)
[2018-02-27] MEDS: predniSONE 20 MG TAB PO SCH (09:08)
--- NOTE | 2018-02-27 11:48 | PRG ---
DATE OF SERVICE: 02/27/2018 SUBJECTIVE: The patient seems to be doing reasonably well. He has a chest tube in place on the [facility]. PHYSICAL EXAMINATION: VITAL SIGNS: Temperature 98.6, pulse 78, respirations 20, O2 sat 93%, blood pressure 142/99. HEENT: Unremarkable. NECK: No JVD. LUNGS: Slightly diminished breath sounds right base compared to left. He has no air leak. CARDIAC: S1 and S2 regular. ABDOMEN: Soft. EXTREMITIES: No edema. LABORATORY DATA: White blood cell count 14, hematocrit 35.8, platelet count 580. Sodium 136, potass ium 4.3, BUN 13, creatinine 0.8, glucose 129. Fluid from the chest tube has not shown any growth to date. ASSESSMENT: 1. Status post evacuation of a complex pleural effusion on the right. 2. Community-acquired pneumonia. 3. Hepatitis C. 4. Alcohol abuse. PLAN: Continue chest tube drainage until thoracic surgery feels it is safe to discontinue. He is co ntinuing antibiotic therapy.
--- NOTE | 2018-02-27 11:59 | EKG ---
Test Reason : Blood Pressure : / mmHG Vent. Rate : 110 BPM Atrial Rate : 110 BPM P-R Int : 132 ms QRS Dur : 078 ms QT Int : 304 ms P-R-T Axes : 002 003 003 degrees QTc Int : 411 ms Sinus tachycardia Inferior infarct , age undetermined Abnormal ECG Confirmed by MATTHEW BARNES ([id number]), associate editor MANDY ROSS ([id number]) on 02/27/2018 11:59:22 AM Referred By: Confirmed By:MATTHEW BARNES
--- NOTE | 2018-02-27 15:55 | PDOC.PN ---
- Subjective Encounter Start Date: 02/27/18 Encounter Start Time: 10:00 Patient seen and examined for Pneumonia/Parapneumonic effusion. No new complaints. No overnight events - Objective Resuscitation Status: Resuscitation Status FULL:Full Resuscitation MAR Reviewed: Yes Vital Signs & Weight: Vital Signs (12 hours) Temp Pulse Resp BP Pulse Ox 02/27/18 11:39 98.7 F 82 20 125/85 92 L 02/27/18 08:07 98.7 F 78 20 142/99 H 93 L 02/27/18 08:00 93 L 02/27/18 05:00 98.6 F 88 18 137/82 92 L Weight Weight 156 lb 8.451 oz I&O: 02/26/18 02/27/18 02/28/18 06:59 06:59 06:59 Intake Total 950 700 360 Output Total 1070 Balance 950 -370 360 Result Diagrams: 02/27/18 04:22 02/24/18 04:15 Phys Exam - Physical Examination Constitutional: NAD Respiratory: no wheezing, no rhonchi Bibasilar rales Cardiovascular: RRR, no rub Gastrointestinal: soft, non-tender, positive bowel sounds Musculoskeletal: no edema Neurological: moves all 4 limbs Dx/Plan - Plan DVT proph w/SCDs 1. Sepsis due to CAP ?gram positive vs Anaerobes / Empyema s/p thorascoscopy Cont current Atbx (Levaquin with Clindamycin) Pain control Cont chest tube drainage 2. Chronic Hep C- PCR negative 3. Tobacco dep - Counselled 4. Abn LFTS - prob due to sepsis. 5. Other issues per previous notes Review of Systems - Review of Systems Respiratory: negative: Cough, Dry, Shortness of Breath, Hemoptysis, SOB with Excertion, Pleuritic Pain, Sputum, Wheezing Cardiovascular: negative: chest pain, palpitations, orthopnea, paroxysmal nocturnal dyspnea, edema, light headedness, other - Medications/Allergies Allergies/Adverse Reactions: Allergies Allergy/AdvReac Type Severity Reaction Status Date / Time No Known Allergies Allergy Verified 02/24/18 01:10 Medications: Current Medications Acetaminophen (Tylenol) 650 mg PO Q4H PRN PRN Reason: Headache/Fever/Mild Pain (1-3) Hydrocodone Bitart/Acetaminophen ([place] 10/325) 1 tab PO Q4H PRN PRN Reason: Pain 4-6 Last Admin: 02/26/18 17:16 Dose: 1 tab Albuterol Sulfate (Ventolin) 2.5 mg NEB [id number] PRN PRN Reason: Wheezing Bisacodyl (Dulcolax) 10 mg [place] DAILYPRN PRN PRN Reason: Constipation Calcium Carbonate (Tums) 1,000 mg PO Q4H PRN PRN Reason: Heartburn or Indigestion Clindamycin HCl (Cleocin) 300 mg PO 0300,0900,1500,2100 [facility] Last Admin: 02/27/18 15:00 Dose: 300 mg Famotidine (Pepcid) 20 mg PO BID [facility] Last Admin: 02/27/18 09:07 Dose: 20 mg Fentanyl (Sublimaze) 50 mcg SLOW IVP Q2H PRN PRN Reason: Severe Pain (7-10) Last Admin: 02/27/18 02:32 Dose: 50 mcg Guaifenesin (Mucinex) 600 mg PO Q12HR [facility] Last Admin: 02/27/18 09:07 Dose: 600 mg Levofloxacin 750 mg/ Device 150 mls @ 100 mls/hr IVPB Q24HR [facility] Last Admin: 02/27/18 02:31 Dose: 150 mls Ketorolac Tromethamine (Toradol) 15 mg IVP Q6HR [facility] Stop: 03/03/18 12:01 Last Admin: 02/27/18 12:48 Dose: Not Given Loperamide HCl (Imodium) 2 mg PO PRN PRN PRN Reason: Diarrhea/Loose Stools Ondansetron HCl (Zofran Odt) 4 mg PO Q6H PRN PRN Reason: Nausea/Vomiting Ondansetron HCl (Zofran) 4 mg IVP Q6H PRN PRN Reason: Nausea/Vomiting Last Admin: 02/27/18 05:53 Dose: 4 mg Prednisone (Prednisone) 20 mg PO QAM-[facility] Stop: 03/01/18 08:01 Last Admin: 02/27/18 09:08 Dose: 20 mg Saccharomyces Boulardii (Florastor) 250 mg PO DAILY [facility] Last Admin: 02/27/18 09:07 Dose: 250 mg Senna/Docusate Sodium (Senokot S) 2 tab PO BIDPRN PRN PRN Reason: Constipation Sodium Chloride (Flush - Normal Saline) 10 ml IVF Q12HR [facility] Last Admin: 02/27/18 09:08 Dose: 10 ml Sodium Chloride (Flush - Normal Saline) 10 ml IVF PRN PRN PRN Reason: Saline Flush Zolpidem Tartrate (Ambien) 5 mg PO HSPRN PRN PRN Reason: Insomnia
[2018-02-28] MEDS: Ketorolac Tromethamine 30 MG/ML VIAL IVP SCH ×2 (00:32→07:06)
[2018-02-28] MEDS: Clindamycin 150 MG CAP PO SCH ×2 (02:15→09:25)
[2018-02-28 05:42] LABS: #Eosinphils 0.3 thou/uL (0.0-0.7); #Lymphocytes 2.8 thou/uL (1.20-3.40); #Monocytes 1.2 thou/uL (0.11-0.59); #Neutrophils 11.2 thou/uL (1.40-6.50); %Basophils 0.2 % (0.0-1.0); %Lymphocytes 18.1 % (21.0-51.0); %Monocytes 7.9 % (0.0-10.0); %Neutrophils 71.8 % (42.0-75.0); Hemoglobin 12.1 g/dL (14.0-18.0); Mean Corpuscular HGB CONC 32.6 g/dL (32.0-36.0); Mean Corpuscular Hemoglobin 30.5 pg (27.0-31.0); Mean Corpuscular Volume 93.6 fL (78.0-98.0); Mean Platelet Volume 7.4 fL (7.4-10.4); Platelet Count 613 thou/uL (130-400); RBC Distribution Width 11.8 % (11.5-14.5); Red Blood Cell (RBC) Count 3.96 mill/uL (4.70-6.10); White Blood Cell (WBC) Count 15.6 thou/uL (4.8-10.8)
[2018-02-28 07:54] VITALS: BP 167/102; TEMP 98.2
[2018-02-28] MEDS: Famotidine 20 MG TAB PO SCH (09:25)
[2018-02-28] MEDS: guaiFENesin ER 600 MG TAB PO SCH (09:25)
[2018-02-28] MEDS: predniSONE 20 MG TAB PO SCH (09:25)
[2018-02-28] MEDS: Saccharomyces boulardii 250 MG CAP PO SCH (09:25)
--- NOTE | 2018-02-28 13:33 | DIS ---
DATE OF DISCHARGE: 02/28/2018 DISCHARGE DISPOSITION: Home. FOLLOWUP: 1. Follow up with primary care physician, Marissa Mi, in 1 week. 2. Follow up with Dr. Ibrahim and Dr. Rafa Griggs in 2 weeks. ALLERGIES: No known drug allergies. The patient was seen on the day of discharge. Denies any new complaints. No chest pain, shortness of breath, palpitations. DISCHARGE MEDICATIONS: Augmentin 875 mg twice a day for 12 more days, prednisone 20 mg daily for 1 more day, Florastor 250 mg daily, Tylenol #3 as needed. INPATIENT CONSULTANTS: Pulmonary, Dr. Ibrahim; Cardiovascular, Dr. Clark. INPATIENT PROCEDURES: 1. 02/24/2018, patient underwent right-sided pleural drainage with catheter insertion under ultrasound guidance. 2. On 02/26/2018, patient underwent thoracoscopy with total lung decortication. DIAGNOSTIC TESTS: 1. Pathology from the pleural fluid was negative for malignant cells. 2. CT angiogram of the chest on 02/23/2018 showed moderately large right pleural effusion with heterogenous mass-like structure seen within the right lower lobe, measuring 3.3 cm. There was also right adrenal nodule and nonspecific mediastinal lymph node. 3. Abdominal ultrasound on 02/24/2018 showed multiple small polyps within the gallbladder, largest measuring 4 mm. A followup examination in 6 months was recommended. 4. Chest x-ray on 02/26/2018 showed [address] with diminished right pleural effusion. 5. Thoracocentesis fluid study showed WBC 92,900. Pleural fluid pH was 7.04 and neutrophils was 90%. BRIEF HOSPITAL COURSE: Patient is a 52-year-old male with tobacco dependence, presented to the hospital with fever and cough. His workup was consistent with right-sided pneumonia with parapneumonic effusion. Please refer to the history and physical for further details. The patient was admitted to the hospital with a diagnosis of pneumonia with complicated parapneumonic effusion. He underwent a thoracocentesis followed by thoracoscopy as discussed above. Chest tubes were discontinued this morning. He was placed on Levaquin and clindamycin that will be changed to Augmentin at discharge per Pulmonary recommendation. He was placed on steroids per Pulmonary , which will be continued for 1 more day. He has been cleared by consultants for discharge. FINAL DIAGNOSES: 1. Sepsis secondary to community-acquired pneumonia, suspected anaerobic versus gram positive (present on admission). 2. Complicated pleural effusion/empyema, status post thoracocentesis and thoracoscopy. 3. Chronic hepatitis C. Hepatitis C RNA was negative. 4. Tobacco dependence. The patient was counseled. 5. Abnormal liver function tests, probably secondary to sepsis. 6. Multiple small polyps within the gallbladder on the ultrasound. A followup examination in 6 months is recommended. Primary care physician advised to follow. 7. Right extrarenal pelvis of the kidney. 8. Right-sided adrenal nodule. A CT scan of abdomen, adrenal mass protocol is recommended as outpatient. Primary care physician advised to follow. MTDD
--- NOTE | 2018-03-05 18:03 | PQF ---
OLLIE ESPARZA MALIK MD [id number] CLINICAL DOCUMENTATION CLARIFICATION FORM: POST DISCHARGE DATE: 03/05/2018 ATTN: DR. PAN Please exercise your independent, professional judgment in responding to the clarification form. Clinical indicators are provided on the bottom of this form for your review Please check appropriate box(s): Conflicting documentation was noted in the Medical Record, please clarify if patient is being treated/monitored for: [ x] SEPSIS [ ] SEPSIS RULED OUT [ ] Other diagnosis [ ] Unable to determine In addition, please specify: Present on Admission (POA): [x ] Yes [ ] No [ ] Unable to determine For continuity of documentation, please document condition throughout progress notes and discharge summary. Thank You. CLINICAL INDICATORS - SIGNS / SYMPTOMS/ LABS Discharge Summary documents "Sepsis secondary to community-acquired pneumonia" - 02/28/18 Transitional Admission orders dated 02/23/18 document "Pneumonia, Sepsis, R pleural effusion" Query dated 02/25/2018 Answered sepsis ruled out 02/25/[address] Rafa Flores WBC 11.7 02/23/18 WBC 20 02/24/18 WBC 27.9 02/25/18 ER record documents P: 112, 107 R 21,22 - 02/23/2018 RISK FACTORS Complicated pleural effusion/empyema - DS 02/28/18 Insert risk factors supporting diagnosis TREATMENT thoracocentesis - op 02/24/2018 thoracoscopy with lung decortication - 02/26/2018 Levofloxacin IV 02/26/18 - Progress Note 02/26/2018 (This form is maintained as a part of the permanent medical record) 2014 [employer], [employer]. All Rights Reserved Ramona Hahn, CCS, DEPUTY COMMISSIONER, CASC [email or web address] [phone] [facility]
== END 2018-02-28 11:30 | disposition home or self-care (01) | DRG 853 ==
LOC: ERS 18:31 → T4-B 22:11
PROVIDERS: ADMIT Internal Medicine; ATTEND Internal Medicine
PROC: 0W9930Z Drainage of Right Pleural Cavity with Drainage Device, Percutaneous Approach (ICD-10-PCS; 2018-02-24)
PROC: 0BC Respiratory System, Extirpation (ICD-10-PCS; principal; 2018-02-26)
DX: A41.9 Sepsis, unspecified organism (principal); J86.9 Pyothorax without fistula; J15.9 Unspecified bacterial pneumonia; J90 Pleural effusion, not elsewhere classified; B19.20 Unspecified viral hepatitis C without hepatic coma; F10.10 Alcohol abuse, uncomplicated; B18.2 Chronic viral hepatitis C; E27.9 Disorder of adrenal gland, unspecified; F17.210 Nicotine dependence, cigarettes, uncomplicated; Z90.49 Acquired absence of other specified parts of digestive tract
CPT/HCPCS: 32555; 36415; 71045; 71275; 76705; 80053; 80074; 82945; 83605; 83615; 83986; 84157; 85025; 85060; 86850; 86900; 86901; 87040; 87070; 87116; 87205; 87206; 87522; 87633; 87899; 88112; 88305; 89051; 90471; 90686; 90732; 93005; 96361; 96365; 96367; 96375; G0008; G0009; J0456; J0670; J0692; J0696; J1642; J1650; J1885; J1956; J2001; J2250; J2270; J2405; J2704; J2920; J3010; J3370; J7050; J7506